=== PATIENT | female | born 1940 | race Two or more races ===

== ENCOUNTER 2025-04-26 17:42 | Inpatient (IN) | payer MEDICARE, OTHER ==
[~2025-04-26] VITALS: Ht 149.9 cm; Wt 45.8 kg
[2025-04-26 20:40] VITALS: BP 134/71; PULSE 73; RESP 18; TEMP 97.2; O2SAT 95
[2025-04-26] MEDS: SENNOSIDES 8.6 MG TABLET PO SCH (21:30)
[2025-04-26] MEDS: DOCUSATE SODIUM 100 MG CAPSULE PO SCH (21:30)
[2025-04-26] MEDS ORDERED: DEXTROSE 50%-WATER 25 GM/50 ML SYRINGE IVP PRN (22:00)
[2025-04-26] MEDS: ETHYL ALCOHOL 62% ANTISEPTIC NASAL SANITIZER 0.6 ML AMPUL NASAL SCH (22:55)
[2025-04-26] MEDS: MELATONIN 3 MG TABLET PO SCH (22:57)
[2025-04-26] MEDS: ROSUVASTATIN CALCIUM 20 MG TABLET PO SCH (22:58)
[2025-04-26] MEDS: METOPROLOL TARTRATE 25 MG TABLET PO SCH (22:59)
[2025-04-26] MEDS: HEPARIN SODIUM,PORCINE 5,000 UNITS/ML VIAL SQ SCH (23:03)
[2025-04-26] MEDS: INSULIN LISPRO 100 UNITS/ML SQ PRN (23:06)
[2025-04-26] MEDS: ACETAMINOPHEN 325 MG TABLET PO PRN (23:07)
[2025-04-27] VITALS (13 sets, daily range): BP systolic 110–149; BP diastolic 48–75; PULSE 57–72; RESP 18; TEMP 97.8–98.5; O2SAT 95–98
[2025-04-27] LABS: GLUCOMETER DEV NAME(LOC) 2WR.1D; GLUCOSE,POINT OF CARE 154 MG/DL (70-110)
[2025-04-27] MEDS: PNEUMOCOCCAL VACCINE POLYVALENT 0.5 ML SYRINGE [PPSV23] IM. ONE (05:00)
[2025-04-27] MEDS: ACETAMINOPHEN 325 MG TABLET PO PRN (05:39)
[2025-04-27] MEDS: LEVOTHYROXINE SODIUM 50 MCG TABLET PO SCH (06:40)
[2025-04-27 06:50] LABS: PLATELET COUNT (AUTO) 232 K/uL (150-450); RED BLOOD CELL COUNT(AUTO) 3.20 MIL/uL (4.00-5.20); RED CELL DISTRIBUTION WIDTH 14.0 % (11.5-14.5); WHITE BLOOD COUNT (AUTO) 8.7 K/uL (4.5-11.0)
[2025-04-27] MEDS ORDERED: LEVOTHYROXINE SODIUM 50 MCG TABLET PO SCH (07:00)
[2025-04-27 07:15] LABS: GLUCOMETER DEV NAME(LOC) 2WR.2C; GLUCOSE,POINT OF CARE 215 MG/DL (70-110)
[2025-04-27 07:26] LABS: ASPARTATE AMINOTRANSFERASE 38 U/L (15-37); CALCIUM, TOTAL 9.0 mg/dL (8.8-10.5); CREATININE 0.73 mg/dL (0.60-1.30); GLOMERULAR FILTR. RATE CALC > 60 mL/min (>60); GLUCOSE,RANDOM 216 mg/dL (70-110); SODIUM SERUM 138 mmol/L (136-145); TOTAL PROTEIN, SERUM 6.2 g/dL (6.4-8.2); UREA NITROGEN, BLOOD 20 mg/dL (7-18)
[2025-04-27] MEDS: CALCIUM CARBONATE 500 MG CHEWABLE TABLET CHEW SCH (08:51)
[2025-04-27] MEDS: CHOLECALCIFEROL (VIT D3) 400 UNITS [10 MCG] TABLET PO SCH (08:51)
[2025-04-27] MEDS: LOSARTAN POTASSIUM 25 MG TABLET PO SCH (08:51)
[2025-04-27] MEDS: UBIDECARENONE 100 MG CAPSULE PO SCH (08:52)
[2025-04-27] MEDS: ASPIRIN 81 MG CHEWABLE TABLET PO SCH (08:52)
[2025-04-27] MEDS: ESCITALOPRAM OXALATE 10 MG TABLET PO SCH (12:15)
[2025-04-27 12:20] LABS: GLUCOMETER DEV NAME(LOC) 2WR.2C; GLUCOSE,POINT OF CARE 178 MG/DL (70-110)
[2025-04-27] MEDS: HYDROCORTISONE 25 MG RECTAL SUPPOSITORY PR PRN (14:22)
[2025-04-27 17:11] LABS: GLUCOMETER DEV NAME(LOC) 2WR.2C; GLUCOSE,POINT OF CARE 172 MG/DL (70-110)
[2025-04-27] MEDS: EZETIMIBE 10 MG TABLET PO SCH (20:44)
[2025-04-28] VITALS: BP 112/54; PULSE 65; RESP 18; TEMP 98.2; O2SAT 96
[2025-04-28 05:05] LABS: GLUCOMETER DEV NAME(LOC) 2WR.2C; GLUCOSE,POINT OF CARE 208 MG/DL (70-110)
[2025-04-28 06:23] VITALS: BP 132/82; PULSE 86; RESP 18; TEMP 97.8; O2SAT 96
[2025-04-28 06:31] LABS: GLUCOMETER DEV NAME(LOC) 2WR.2C; GLUCOSE,POINT OF CARE 185 MG/DL (70-110)
[2025-04-28] MEDS: LEVOTHYROXINE SODIUM 75 MCG TABLET PO SCH (06:44)
[2025-04-28 08:00] VITALS: BP 122/63; PULSE 67; RESP 18; TEMP 98.1; O2SAT 98
[2025-04-28 12:36] LABS: GLUCOMETER DEV NAME(LOC) 2WR.2C; GLUCOSE,POINT OF CARE 247 MG/DL (70-110)
[2025-04-28 18:15] LABS: GLUCOMETER DEV NAME(LOC) 2WR.1D; GLUCOSE,POINT OF CARE 155 MG/DL (70-110)
[2025-04-28 20:00] VITALS: BP 121/55; PULSE 69; RESP 18; TEMP 98.2; O2SAT 94
[2025-04-28] MEDS: DICLOFENAC SODIUM 1% 100 GM GEL [4GM] TP PRN (20:01)
[2025-04-28 20:45] VITALS: O2SAT 94
[2025-04-28] MEDS: PHENYLEPHRINE/COCOA BUTTER RECTAL SUPPOSITORY PR PRN (20:49)
[2025-04-28 21:25] LABS: GLUCOMETER DEV NAME(LOC) 2WR.1D; GLUCOSE,POINT OF CARE 164 MG/DL (70-110)
[2025-04-29 06:55] LABS: GLUCOMETER DEV NAME(LOC) 2WR.1D; GLUCOSE,POINT OF CARE 191 MG/DL (70-110)
[2025-04-29 08:00] VITALS: BP 152/55; PULSE 72; RESP 17; TEMP 98.2; O2SAT 97
[2025-04-29] MEDS: PHENYLEPHRINE/SHK LV/MIN OIL/PET 57 GM OINTMENT TP PRN (10:15)
[2025-04-29 13:26] LABS: GLUCOMETER DEV NAME(LOC) 2WR.2C; GLUCOSE,POINT OF CARE 228 MG/DL (70-110)
[2025-04-29 18:41] LABS: GLUCOMETER DEV NAME(LOC) 2WR.2C; GLUCOSE,POINT OF CARE 172 MG/DL (70-110)
[2025-04-29 20:00] VITALS: BP 126/57; PULSE 70; RESP 18; TEMP 98.4; O2SAT 95
[2025-04-29 20:05] VITALS: O2SAT 95
[2025-04-29] MEDS: GABAPENTIN 100 MG CAPSULE PO SCH (20:09)
[2025-04-29 22:46] LABS: GLUCOMETER DEV NAME(LOC) 2WR.2C; GLUCOSE,POINT OF CARE 180 MG/DL (70-110)
[2025-04-30 06:35] LABS: GLUCOMETER DEV NAME(LOC) 2WR.2C; GLUCOSE,POINT OF CARE 203 MG/DL (70-110)
[2025-04-30 08:01] VITALS: BP 133/54; PULSE 64; RESP 18; TEMP 97.9; O2SAT 94
[2025-04-30 12:01] LABS: GLUCOMETER DEV NAME(LOC) 2WR.1D; GLUCOSE,POINT OF CARE 212 MG/DL (70-110)
[2025-04-30 17:11] LABS: GLUCOMETER DEV NAME(LOC) 2WR.2C; GLUCOSE,POINT OF CARE 178 MG/DL (70-110)
[2025-04-30 20:00] VITALS: BP 122/57; PULSE 68; RESP 18; TEMP 99; O2SAT 95
[2025-04-30 22:15] LABS: GLUCOMETER DEV NAME(LOC) 2WR.1D; GLUCOSE,POINT OF CARE 141 MG/DL (70-110)
[2025-05-01 06:40] LABS: GLUCOMETER DEV NAME(LOC) 2WR.1D; GLUCOSE,POINT OF CARE 195 MG/DL (70-110)
[2025-05-01 08:00] VITALS: BP 128/48; PULSE 70; RESP 18; TEMP 98.1; O2SAT 98
[2025-05-01 11:51] LABS: GLUCOMETER DEV NAME(LOC) 2WR.2C; GLUCOSE,POINT OF CARE 224 MG/DL (70-110)
[2025-05-01] MEDS: GABAPENTIN 100 MG CAPSULE PO SCH (15:34)
[2025-05-01 17:00] LABS: GLUCOMETER DEV NAME(LOC) 2WR.1D; GLUCOSE,POINT OF CARE 227 MG/DL (70-110)
[2025-05-01 20:02] VITALS: BP 145/60; PULSE 87; RESP 18; TEMP 98.6; O2SAT 99
[2025-05-01] MEDS: DOCUSATE SODIUM 283 MG/5 ML MINI-ENEMA PR PRN (20:18)
[2025-05-01 21:50] LABS: GLUCOMETER DEV NAME(LOC) 2WR.2C; GLUCOSE,POINT OF CARE 177 MG/DL (70-110)
[2025-05-01 22:00] VITALS: O2SAT 99
[2025-05-02] VITALS (7 sets, daily range): BP systolic 115–138; BP diastolic 44–70; PULSE 58–79; RESP 18; TEMP 97.9–98.6; O2SAT 96–99
[2025-05-02 06:50] LABS: GLUCOMETER DEV NAME(LOC) 2WR.1D; GLUCOSE,POINT OF CARE 161 MG/DL (70-110)
[2025-05-02] MEDS: FAMOTIDINE 20 MG TABLET PO SCH (12:13)
[2025-05-02 12:46] LABS: GLUCOMETER DEV NAME(LOC) 2WR.2C; GLUCOSE,POINT OF CARE 213 MG/DL (70-110)
[2025-05-02 16:51] LABS: GLUCOMETER DEV NAME(LOC) 2WR.2C; GLUCOSE,POINT OF CARE 135 MG/DL (70-110)
[2025-05-02 22:00] LABS: GLUCOMETER DEV NAME(LOC) 2WR.2C; GLUCOSE,POINT OF CARE 153 MG/DL (70-110)
[2025-05-03 07:21] LABS: GLUCOMETER DEV NAME(LOC) 2WR.1D; GLUCOSE,POINT OF CARE 143 MG/DL (70-110)
[2025-05-03 08:00] VITALS: BP 144/56; PULSE 65; RESP 19; TEMP 98.4; O2SAT 97
[2025-05-03 12:00] LABS: GLUCOMETER DEV NAME(LOC) 2WR.1D; GLUCOSE,POINT OF CARE 214 MG/DL (70-110)
[2025-05-03 16:50] LABS: GLUCOMETER DEV NAME(LOC) 2WR.1D; GLUCOSE,POINT OF CARE 151 MG/DL (70-110)
[2025-05-03 20:15] VITALS: BP 117/44; PULSE 67; RESP 18; TEMP 98.8; O2SAT 95
[2025-05-03 20:30] VITALS: BP 136/65; PULSE 70
[2025-05-03 22:01] VITALS: O2SAT 95
[2025-05-04 03:01] LABS: GLUCOMETER DEV NAME(LOC) 2WR.2C; GLUCOSE,POINT OF CARE 142 MG/DL (70-110)
[2025-05-04 07:25] LABS: GLUCOMETER DEV NAME(LOC) 2WR.2C; GLUCOSE,POINT OF CARE 148 MG/DL (70-110)
[2025-05-04 08:00] VITALS: BP 117/54; PULSE 63; RESP 18; TEMP 97.3; O2SAT 97
[2025-05-04 12:10] LABS: GLUCOMETER DEV NAME(LOC) 2WR.1D; GLUCOSE,POINT OF CARE 137 MG/DL (70-110)
[2025-05-04 17:36] LABS: GLUCOMETER DEV NAME(LOC) 2WR.1D; GLUCOSE,POINT OF CARE 147 MG/DL (70-110)
[2025-05-04 20:00] VITALS: O2SAT 98
[2025-05-04 20:46] VITALS: BP 119/60; PULSE 79; RESP 19; TEMP 98.1; O2SAT 98
[2025-05-04 22:21] LABS: GLUCOMETER DEV NAME(LOC) 2WR.2C; GLUCOSE,POINT OF CARE 165 MG/DL (70-110)
[2025-05-05 07:41] VITALS: BP 103/45; PULSE 70; RESP 18; TEMP 97.7; O2SAT 96
[2025-05-05 12:51] LABS: GLUCOMETER DEV NAME(LOC) 2WR.1D; GLUCOSE,POINT OF CARE 196 MG/DL (70-110)
[2025-05-05 17:35] LABS: GLUCOMETER DEV NAME(LOC) 2WR.2C; GLUCOSE,POINT OF CARE 155 MG/DL (70-110)
[2025-05-05 21:05] VITALS: BP 118/53; PULSE 86; RESP 20; TEMP 97.9
[2025-05-06 00:16] LABS: GLUCOMETER DEV NAME(LOC) 2WR.2C; GLUCOSE,POINT OF CARE 141 MG/DL (70-110)
[2025-05-06 01:40] VITALS: O2SAT 97
[2025-05-06 06:56] LABS: GLUCOMETER DEV NAME(LOC) 2WR.1D; GLUCOSE,POINT OF CARE 159 MG/DL (70-110)
[2025-05-06 08:14] VITALS: BP 121/56; PULSE 71; RESP 18; TEMP 97.6; O2SAT 100
[2025-05-06 12:36] LABS: GLUCOMETER DEV NAME(LOC) 2WR.2C; GLUCOSE,POINT OF CARE 146 MG/DL (70-110)
[2025-05-06 15:51] VITALS: BP 118/41; PULSE 67; RESP 18; TEMP 97.8; O2SAT 98
[2025-05-06 17:21] LABS: GLUCOMETER DEV NAME(LOC) 2WR.1D; GLUCOSE,POINT OF CARE 141 MG/DL (70-110)
[2025-05-06 20:00] VITALS: BP 117/49; PULSE 69; RESP 18; TEMP 97.5; O2SAT 97
[2025-05-06 21:00] VITALS: O2SAT 97
[2025-05-06] MEDS: GABAPENTIN 100 MG CAPSULE PO SCH (21:27)
[2025-05-06 23:06] LABS: GLUCOMETER DEV NAME(LOC) 2WR.2C; GLUCOSE,POINT OF CARE 183 MG/DL (70-110)
[2025-05-07 08:10] VITALS: BP 131/53; PULSE 82; RESP 18; TEMP 97.9; O2SAT 98
[2025-05-07 10:02] VITALS: O2SAT 99
[2025-05-07 12:25] LABS: GLUCOMETER DEV NAME(LOC) 2WR.2C; GLUCOSE,POINT OF CARE 166 MG/DL (70-110)
[2025-05-07 17:20] LABS: GLUCOMETER DEV NAME(LOC) 2WR.2C; GLUCOSE,POINT OF CARE 163 MG/DL (70-110)
[2025-05-07 20:00] VITALS: BP 123/51; PULSE 70; RESP 18; TEMP 98.2; O2SAT 96
[2025-05-07] MEDS: CARBOXYMETHYLCELLULOSE SODIUM 0.4 ML OPHTHALMIC SOLUTION [PF] OU PRN (20:05)
[2025-05-07 22:16] LABS: GLUCOMETER DEV NAME(LOC) 2WR.2C; GLUCOSE,POINT OF CARE 129 MG/DL (70-110)
[2025-05-08 00:16] VITALS: BP 132/55; PULSE 66; RESP 18; TEMP 98; O2SAT 98
[2025-05-08 07:51] LABS: GLUCOMETER DEV NAME(LOC) 2WR.2C; GLUCOSE,POINT OF CARE 119 MG/DL (70-110)
[2025-05-08 09:03] VITALS: BP 128/61; PULSE 69; RESP 18; TEMP 97.9; O2SAT 97
[2025-05-08 12:21] LABS: GLUCOMETER DEV NAME(LOC) 2WR.1D; GLUCOSE,POINT OF CARE 173 MG/DL (70-110)
[2025-05-08 18:50] VITALS: BP 120/64; PULSE 68; RESP 18; O2SAT 98
[2025-05-08 18:55] LABS: GLUCOMETER DEV NAME(LOC) 2WR.1D; GLUCOSE,POINT OF CARE 133 MG/DL (70-110)
[2025-05-08 20:00] VITALS: BP 121/56; PULSE 69; RESP 18; TEMP 97.5; O2SAT 97
[2025-05-08 22:41] LABS: GLUCOMETER DEV NAME(LOC) 2WR.2C; GLUCOSE,POINT OF CARE 168 MG/DL (70-110)
[2025-05-09 00:55] VITALS: PULSE 68; TEMP 97.1
[2025-05-09 06:56] LABS: GLUCOMETER DEV NAME(LOC) 2WR.2C; GLUCOSE,POINT OF CARE 141 MG/DL (70-110)
[2025-05-09 08:00] VITALS: BP 131/55; PULSE 70; RESP 19; TEMP 98.1; O2SAT 100
[2025-05-09 10:46] LABS: GLUCOMETER DEV NAME(LOC) 2WR.1D; GLUCOSE,POINT OF CARE 171 MG/DL (70-110)
[2025-05-09 11:00] VITALS: O2SAT 100
[2025-05-09 12:56] LABS: GLUCOMETER DEV NAME(LOC) 2WR.2C; GLUCOSE,POINT OF CARE 216 MG/DL (70-110)
[2025-05-09 17:27] VITALS: BP 121/57; PULSE 65
[2025-05-09 17:35] LABS: GLUCOMETER DEV NAME(LOC) 2WR.2C; GLUCOSE,POINT OF CARE 137 MG/DL (70-110)
[2025-05-09 20:15] VITALS: BP 113/61; PULSE 80; RESP 18; TEMP 98.4; O2SAT 98
[2025-05-09 20:21] LABS: GLUCOMETER DEV NAME(LOC) 2WR.2C; GLUCOSE,POINT OF CARE 144 MG/DL (70-110)
[2025-05-09 23:07] VITALS: O2SAT 98
[2025-05-10 07:01] LABS: GLUCOMETER DEV NAME(LOC) 2WR.2C; GLUCOSE,POINT OF CARE 149 MG/DL (70-110)
[2025-05-10 08:00] VITALS: BP 136/60; PULSE 72; RESP 18; TEMP 97.9; O2SAT 98
[2025-05-10] MEDS: POLYETHYLENE GLYCOL 3350 17 GM PACKET PO SCH (12:11)
[2025-05-10 14:36] LABS: GLUCOMETER DEV NAME(LOC) 2WR.2C; GLUCOSE,POINT OF CARE 167 MG/DL (70-110)
[2025-05-10 15:53] VITALS: BP 108/48; PULSE 61; RESP 18
[2025-05-10 16:50] VITALS: BP 109/44; PULSE 72; RESP 18; TEMP 97.9; O2SAT 96
[2025-05-10 17:45] LABS: GLUCOMETER DEV NAME(LOC) 2WR.1D; GLUCOSE,POINT OF CARE 138 MG/DL (70-110)
[2025-05-10] MEDS: DOCUSATE SODIUM 100 MG CAPSULE PO SCH (20:13)
[2025-05-10] MEDS: SENNOSIDES 8.6 MG TABLET PO SCH (20:14)
[2025-05-10 20:20] VITALS: BP 103/57; PULSE 76; RESP 18; TEMP 98.4; O2SAT 99
[2025-05-10 20:26] VITALS: BP 111/51; PULSE 78
[2025-05-10 22:47] LABS: GLUCOMETER DEV NAME(LOC) 2WR.2C; GLUCOSE,POINT OF CARE 146 MG/DL (70-110)
[2025-05-11 04:03] VITALS: O2SAT 99
[2025-05-11 07:16] LABS: GLUCOMETER DEV NAME(LOC) 2WR.2C; GLUCOSE,POINT OF CARE 170 MG/DL (70-110)
[2025-05-11 08:00] VITALS: BP 128/48; PULSE 68; RESP 18; TEMP 98.2; O2SAT 95
[2025-05-11 12:05] LABS: GLUCOMETER DEV NAME(LOC) 2WR.2C; GLUCOSE,POINT OF CARE 181 MG/DL (70-110)
[2025-05-11 17:36] LABS: GLUCOMETER DEV NAME(LOC) 2WR.1D; GLUCOSE,POINT OF CARE 125 MG/DL (70-110)
[2025-05-11 21:14] VITALS: BP 121/53; PULSE 68; RESP 18; TEMP 98.1; O2SAT 99
[2025-05-11 21:16] VITALS: O2SAT 98
[2025-05-11 23:26] LABS: GLUCOMETER DEV NAME(LOC) 2WR.2C; GLUCOSE,POINT OF CARE 165 MG/DL (70-110)
[2025-05-12 06:50] LABS: GLUCOMETER DEV NAME(LOC) 2WR.1D; GLUCOSE,POINT OF CARE 150 MG/DL (70-110)
[2025-05-12 06:59] LABS: PLATELET COUNT (AUTO) 195 K/uL (150-450); RED BLOOD CELL COUNT(AUTO) 3.58 MIL/uL (4.00-5.20); RED CELL DISTRIBUTION WIDTH 14.2 % (11.5-14.5); WHITE BLOOD COUNT (AUTO) 7.3 K/uL (4.5-11.0)
[2025-05-12 07:07] LABS: CALCIUM, TOTAL 9.0 mg/dL (8.8-10.5); CREATININE 0.63 mg/dL (0.60-1.30); GLOMERULAR FILTR. RATE CALC > 60 mL/min (>60); GLUCOSE,RANDOM 151 mg/dL (70-110); SODIUM SERUM 136 mmol/L (136-145); UREA NITROGEN, BLOOD 14 mg/dL (7-18)
[2025-05-12 08:00] VITALS: BP 141/67; PULSE 71; RESP 17; TEMP 98.1; O2SAT 95
[2025-05-12 08:31] LABS: RBC MORPHOLOGY COMMENT ABNORMAL RBC MORPH
[2025-05-12 12:41] LABS: APPEARANCE,URINE CLEAR (CLEAR); GLUCOSE, URINE (UA) NEGATIVE (NEGATIVE); LEUKOCYTE ESTERASE ,URINE LARGE (NEGATIVE); NITRATE,URINE NEGATIVE (NEGATIVE); OCCULT BLOOD,URINE NEGATIVE (NEGATIVE); SPECIFIC GRAVITIY, URINE 1.017 (1.003-1.030)
[2025-05-12 12:55] LABS: GLUCOMETER DEV NAME(LOC) 2WR.2C; GLUCOSE,POINT OF CARE 170 MG/DL (70-110)
[2025-05-12 13:05] LABS: SQUAMOUS EPITHELIAL CELL,UR Few /LPF (None Seen)
[2025-05-12] MEDS ORDERED: NITROFURANTOIN MONOHYD/M-CRYST 100 MG CAPSULE [MACROBID] PO SCH (13:30)
[2025-05-12 18:31] LABS: GLUCOMETER DEV NAME(LOC) 2WR.2C; GLUCOSE,POINT OF CARE 181 MG/DL (70-110)
[2025-05-12 20:15] VITALS: BP 119/54; PULSE 70; RESP 18; TEMP 98; O2SAT 96
[2025-05-13 03:05] LABS: GLUCOMETER DEV NAME(LOC) 2WR.1D; GLUCOSE,POINT OF CARE 115 MG/DL (70-110)
[2025-05-13 07:00] LABS: GLUCOMETER DEV NAME(LOC) 2WR.1D; GLUCOSE,POINT OF CARE 125 MG/DL (70-110)
[2025-05-13 08:00] VITALS: O2SAT 98
[2025-05-13 08:40] VITALS: BP 139/101; PULSE 68; RESP 18; TEMP 97.8; O2SAT 98
[2025-05-13 12:20] LABS: GLUCOMETER DEV NAME(LOC) 2WR.2C; GLUCOSE,POINT OF CARE 199 MG/DL (70-110)
[2025-05-13 19:01] LABS: GLUCOMETER DEV NAME(LOC) 2WR.1D; GLUCOSE,POINT OF CARE 150 MG/DL (70-110)
[2025-05-13 20:00] VITALS: O2SAT 98
[2025-05-13 20:11] VITALS: BP 118/45; PULSE 66; RESP 16; TEMP 98.4; O2SAT 98
[2025-05-13 21:00] VITALS: BP 114/44; PULSE 66; RESP 18; O2SAT 96
[2025-05-13 23:20] VITALS: BP 112/57; PULSE 67; RESP 18; O2SAT 99
[2025-05-14 03:01] LABS: GLUCOMETER DEV NAME(LOC) 2WR.2C; GLUCOSE,POINT OF CARE 124 MG/DL (70-110)
[2025-05-14 08:05] VITALS: BP 109/59; PULSE 76; RESP 18; TEMP 97.5; O2SAT 100
[2025-05-14 08:45] LABS: GLUCOMETER DEV NAME(LOC) 2WR.2C; GLUCOSE,POINT OF CARE 147 MG/DL (70-110)
[2025-05-14 12:25] LABS: GLUCOMETER DEV NAME(LOC) 2WR.2C; GLUCOSE,POINT OF CARE 129 MG/DL (70-110)
[2025-05-14 17:35] LABS: GLUCOMETER DEV NAME(LOC) 2WR.1D; GLUCOSE,POINT OF CARE 131 MG/DL (70-110)
[2025-05-14 20:00] VITALS: BP 122/61; PULSE 70; RESP 18; TEMP 98.4; O2SAT 98
[2025-05-14 21:20] LABS: GLUCOMETER DEV NAME(LOC) 2WR.1D; GLUCOSE,POINT OF CARE 158 MG/DL (70-110)
[2025-05-15 07:30] LABS: GLUCOMETER DEV NAME(LOC) 2WR.1D; GLUCOSE,POINT OF CARE 168 MG/DL (70-110)
[2025-05-15 08:00] VITALS: BP 127/54; PULSE 78; RESP 18; TEMP 98.2; O2SAT 98
[2025-05-15 13:05] LABS: GLUCOMETER DEV NAME(LOC) 2WR.1D; GLUCOSE,POINT OF CARE 152 MG/DL (70-110)
[2025-05-15 15:06] LABS: APPEARANCE,URINE HAZY (CLEAR); GLUCOSE, URINE (UA) NEGATIVE (NEGATIVE); LEUKOCYTE ESTERASE ,URINE SMALL (NEGATIVE); NITRATE,URINE NEGATIVE (NEGATIVE); OCCULT BLOOD,URINE NEGATIVE (NEGATIVE); SPECIFIC GRAVITIY, URINE 1.007 (1.003-1.030)
[2025-05-15 15:51] LABS: SQUAMOUS EPITHELIAL CELL,UR Few /LPF (None Seen)
[2025-05-15 18:10] LABS: GLUCOMETER DEV NAME(LOC) 2WR.2C; GLUCOSE,POINT OF CARE 145 MG/DL (70-110)
[2025-05-15 20:00] VITALS: BP 127/56; PULSE 68; RESP 18; TEMP 98; O2SAT 98
[2025-05-15 20:47] VITALS: BP 126/57
[2025-05-15 22:36] LABS: GLUCOMETER DEV NAME(LOC) 2WR.1D; GLUCOSE,POINT OF CARE 113 MG/DL (70-110)
[2025-05-16 07:15] LABS: GLUCOMETER DEV NAME(LOC) 2WR.2C; GLUCOSE,POINT OF CARE 138 MG/DL (70-110)
[2025-05-16 08:40] VITALS: BP 129/51; PULSE 64; RESP 18; TEMP 97.9; O2SAT 95
[2025-05-16] MEDS ORDERED: SITA25 PO (11:27)
[2025-05-16] MEDS ORDERED: METO25 PO (11:27)
[2025-05-16] MEDS ORDERED: FAMO20 PO (11:27)
[2025-05-16] MEDS ORDERED: UBID100C44 PO (11:27)
[2025-05-16] MEDS ORDERED: POLY17PO62 PO (11:27)
[2025-05-16] MEDS ORDERED: BUSP5TAB20 PO (11:27)
[2025-05-16] MEDS ORDERED: LOSA-417 PO (11:27)
[2025-05-16] MEDS ORDERED: METF-1185 PO (11:27)
[2025-05-16] MEDS ORDERED: GABA-1216 PO (11:27)
[2025-05-16] MEDS ORDERED: ROSU20TA98 PO (11:27)
[2025-05-16] MEDS ORDERED: METH-811 PO (11:27)
[2025-05-16] MEDS ORDERED: CALC500T37 CHEW (11:27)
[2025-05-16] MEDS ORDERED: DICL100G60 TP (11:27)
[2025-05-16] MEDS ORDERED: LEVO50 PO (11:27)
[2025-05-16] MEDS ORDERED: ANUSHCS PR (11:27)
[2025-05-16] MEDS ORDERED: NITR-104 PO (11:27)
[2025-05-16] MEDS ORDERED: INSU100V SQ (11:27)
[2025-05-16] MEDS ORDERED: SENN-374 PO (11:27)
[2025-05-16] MEDS ORDERED: ASPI-1450 PO (11:27)
[2025-05-16] MEDS ORDERED: EZET10TA57 PO (11:27)
[2025-05-16] MEDS ORDERED: DOCU-385 PO (11:27)
[2025-05-16] MEDS ORDERED: CHOL400T56 PO (11:27)
[2025-05-16 12:31] LABS: GLUCOMETER DEV NAME(LOC) 2WR.1D; GLUCOSE,POINT OF CARE 189 MG/DL (70-110)
[2025-05-16 17:05] LABS: GLUCOMETER DEV NAME(LOC) 2WR.1D; GLUCOSE,POINT OF CARE 126 MG/DL (70-110)
[2025-05-16 20:37] VITALS: BP 123/64; PULSE 72; RESP 18; TEMP 98; O2SAT 98
[2025-05-16] MEDS: NITROFURANTOIN MONOHYD/M-CRYST 100 MG CAPSULE [MACROBID] PO SCH (20:43)
[2025-05-16 23:25] VITALS: O2SAT 98
[2025-05-16 23:36] LABS: GLUCOMETER DEV NAME(LOC) 2WR.1D; GLUCOSE,POINT OF CARE 112 MG/DL (70-110)
[2025-05-17 01:24] VITALS: BP 131/67; PULSE 67; RESP 18; O2SAT 98
[2025-05-17 02:39] VITALS: BP 131/67; PULSE 70; RESP 18; O2SAT 98
[2025-05-17 07:51] LABS: GLUCOMETER DEV NAME(LOC) 2WR.2C; GLUCOSE,POINT OF CARE 111 MG/DL (70-110)
[2025-05-17 08:00] VITALS: BP 111/51; PULSE 63; RESP 19; TEMP 98.1; O2SAT 98
[2025-05-17 11:40] LABS: GLUCOMETER DEV NAME(LOC) 2WR.2C; GLUCOSE,POINT OF CARE 133 MG/DL (70-110)
[2025-05-17 17:36] LABS: GLUCOMETER DEV NAME(LOC) 2WR.2C; GLUCOSE,POINT OF CARE 138 MG/DL (70-110)
[2025-05-17 20:00] VITALS: BP 120/60; PULSE 72; RESP 19; TEMP 98.6; O2SAT 97
[2025-05-17 21:06] LABS: GLUCOMETER DEV NAME(LOC) 2WR.2C; GLUCOSE,POINT OF CARE 126 MG/DL (70-110)
[2025-05-18 06:56] LABS: GLUCOMETER DEV NAME(LOC) 2WR.2C; GLUCOSE,POINT OF CARE 115 MG/DL (70-110)
[2025-05-18 08:00] VITALS: BP 125/56; PULSE 71; RESP 16; TEMP 97.9; O2SAT 95
[2025-05-18 12:45] LABS: GLUCOMETER DEV NAME(LOC) 2WR.2C; GLUCOSE,POINT OF CARE 125 MG/DL (70-110)
== END 2025-05-18 14:24 | disposition home health service (06) | DRG 57 ==
LOC: 2WR 20:34
PROVIDERS: ADMIT Physical Medicine & Rehabilitation; ATTEND Physical Medicine & Rehabilitation
DX: I69.354 Hemiplegia and hemiparesis following cerebral infarction affecting left non-dominant side (principal); E46 Unspecified protein-calorie malnutrition; R41.4 Neurologic neglect syndrome; N39.0 Urinary tract infection, site not specified; R41.89 Other symptoms and signs involving cognitive functions and awareness; R13.10 Dysphagia, unspecified; I10 Essential (primary) hypertension; K64.4 Residual hemorrhoidal skin tags; D53.9 Nutritional anemia, unspecified; E78.5 Hyperlipidemia, unspecified; F41.9 Anxiety disorder, unspecified; E03.9 Hypothyroidism, unspecified; G47.00 Insomnia, unspecified; K59.00 Constipation, unspecified; R32 Unspecified urinary incontinence; K64.8 Other hemorrhoids; E11.65 Type 2 diabetes mellitus with hyperglycemia; F41.1 Generalized anxiety disorder; Z74.09 Other reduced mobility; Z88.0 Allergy status to penicillin; Z79.899 Other long term (current) drug therapy; Z79.82 Long term (current) use of aspirin; Z68.20 Body mass index [BMI] 20.0-20.9, adult
CPT/HCPCS: 70450; 74019; 74230; 80048; 80053; 81001; 82962; 84145; 85025; 87077; 87081; 87086; 87186; 92507; 92526; 92610; 92611; 97110; 97112; 97116; 97150; 97163; 97167; 97530; 97535; 99285; 99366; J1644